=== PATIENT | female | born 1965 | race Caucasian/White ===

== ENCOUNTER 2018-10-04 08:58 | Emergency (ER) | payer OTHER ==
[~2018-10-04] VITALS: Ht 170.2 cm; Wt 78.2 kg
[2018-10-04 09:04] VITALS: BP 121/77
[2018-10-04] MEDS ORDERED: SYNTHROID (09:54)
== END 2018-10-04 10:27 | disposition home or self-care (01) ==
LOC: ED 10:21
DX: S33.5XXA Sprain of ligaments of lumbar spine, initial encounter (principal); S23.3XXA Sprain of ligaments of thoracic spine, initial encounter; V49.49XA Driver injured in collision with other motor vehicles in traffic accident, initial encounter; Y93.89 Activity, other specified; Y92.89 Other specified places as the place of occurrence of the external cause; Y99.8 Other external cause status
CPT/HCPCS: 72072; 72110; 99283